=== PATIENT | male | born 1960 | race Caucasian/White ===

== ENCOUNTER 2020-06-21 08:11 | Inpatient (IN) | payer OTHER ==
[~2020-06-21] VITALS: Ht 185.4 cm; Wt 82.7 kg
[2020-06-21] MEDS ORDERED: ASPirin 81 mg TAB PO ONE (10:15)
[2020-06-21 10:59] LABS: Basophils # (auto) 0.1 10 ^3/uL (0-0.2); Eosinophils # (auto) 0.2 10 ^3/uL (0-0.8); Eosinophils % (auto) 1.8 % (0.0-7.0); Hematocrit 41.2 % (41.0-53.0); Hemoglobin 14.1 g/dL (13.5-17.5); Lymphocytes # (auto) 1.9 10 ^3/uL (0.4-5.4); Lymphocytes % (auto) 19.7 % (10.0-50.0); Mean Corpuscular Hemoglobin 34.2 pg (28.0-32.0); Mean Corpuscular Hgb Conc. 34.3 g/dL (32.0-36.0); Monocytes # (auto) 0.7 10 ^3/uL (0-1.3); Monocytes % (auto) 6.9 % (0.0-12.0); Neutrophils # (auto) 6.8 10 ^3/uL (1.6-8.6); Neutrophils % (auto) 70.6 % (37.0-80.0); Platelet Count (auto) 174 10^3/uL (140-450); Red Blood Cells 4.12 10^6/uL (4.5-5.90); Red Cell Distribution Width 13.6 % (11.8-14.3); White Blood Cell 9.7 10^3/uL (4.4-10.8)
[2020-06-21 11:14] LABS: INR 1.06 (0.9-1.15); Partial Thromboplastin Time 29.6 sec (23.0-31.2)
[2020-06-21 11:25] LABS: Albumin 3.9 g/dL (3.4-5.0); Calcium 8.5 mg/dL (8.5-10.1); Potassium 4.1 mmol/L (3.5-5.1)
[2020-06-21 11:30] LABS: BUN/Creatinine Ratio 19.4; Bilirubin, Total 0.6 mg/dL (0.2-1.0); Total Protein 6.8 g/dL (6.4-8.2)
[2020-06-21] MEDS ORDERED: FUROSEMIDE 40 MG/4 ML VIAL IV ONE (12:15)
[2020-06-21] MEDS ORDERED: NITROGLYCERIN 0.4 MG SL TAB SL PRN (14:30)
[2020-06-21] MEDS ORDERED: ONDANSETRON HCL 4 MG/2 ML VIAL IV PRN (14:30)
[2020-06-21] MEDS ORDERED: HYDROcodone-ACET 5/325MG TAB PO PRN (14:30)
[2020-06-21] MEDS ORDERED: MORPHINE SULF INJ 2 MG/ML SYRINGE 1ML IV PRN ×2 (14:30)
[2020-06-21] MEDS ORDERED: ACETAMINOPHEN 500 MG TAB PO PRN (14:30)
[2020-06-21 14:31] LABS: Urine Bacteria NONE SEEN /hpf (None Seen); Urine Blood Negative /uL (Negative); Urine Specific Gravity 1.012 (1.001-1.035); Urine WBC <1 /hpf (0 - 3)
[2020-06-21 18:18] LABS: Magnesium 2.6 mg/dL (1.6-2.6)
[2020-06-21 19:55] VITALS: BP 94/58
[2020-06-21 20:23] VITALS: BP 94/58
[2020-06-21] MEDS: METOPROLOL TARTRATE 25 MG TAB PO SCH (21:57)
[2020-06-21] MEDS ORDERED: ATORVASTATIN 20 MG TAB PO SCH (22:00)
[2020-06-21 22:16] VITALS: BP 97/66
[2020-06-22 05:23] VITALS: BP 91/58
[2020-06-22 07:41] LABS: Basophils # (auto) 0.1 10 ^3/uL (0-0.2); Eosinophils # (auto) 0.3 10 ^3/uL (0-0.8); Hemoglobin 14.5 g/dL (13.5-17.5); Mean Corpuscular Hemoglobin 34.4 pg (28.0-32.0); Monocytes # (auto) 0.7 10 ^3/uL (0-1.3); Monocytes % (auto) 7.7 % (0.0-12.0); Neutrophils # (auto) 5.7 10 ^3/uL (1.6-8.6); Nucleated Red Blood Cells % 0.1 %
[2020-06-22 07:45] LABS: Eosinophils % (auto) 3.6 % (0.0-7.0); Lymphocytes # (auto) 2.1 10 ^3/uL (0.4-5.4); Lymphocytes % (auto) 23.3 % (10.0-50.0); Mean Corpuscular Hgb Conc. 34.5 g/dL (32.0-36.0); Mean Corpuscular Volume 99.5 fL (80.0-100.0); Neutrophils % (auto) 64.4 % (37.0-80.0); Platelet Count (auto) 168 10^3/uL (140-450); Red Blood Cells 4.22 10^6/uL (4.5-5.90); Red Cell Distribution Width 13.4 % (11.8-14.3); White Blood Cell 8.9 10^3/uL (4.4-10.8)
[2020-06-22 07:55] LABS: INR 1.05 (0.9-1.15); Partial Thromboplastin Time 30.3 sec (23.0-31.2)
[2020-06-22 08:14] LABS: BUN/Creatinine Ratio 19.8; Calcium 8.7 mg/dL (8.5-10.1)
[2020-06-22] MEDS ORDERED: LIDOCAINE 2%HCL (LOCAL ANESTH.) INJ 20ML MDV ONE (08:51)
[2020-06-22] MEDS ORDERED: IODIXANOL 320MG/ML 100ML BTL IV ONE (08:51)
[2020-06-22 08:56] VITALS: BP 100/63
[2020-06-22] MEDS ORDERED: VERAPAMIL 2.5MG/ML INJ 2ML VIAL IV ONE (09:08)
[2020-06-22] MEDS ORDERED: HEPARIN SODIUM (PORCINE) 5000 UNITS/ML 1ML VIAL ONE (09:08)
[2020-06-22] MEDS ORDERED: ANGIOMAX 250 MG VIAL IV ONE (09:08)
[2020-06-22] MEDS ORDERED: MIDAZOLAM HCL 1MG/1ML-2 ML VIAL ONE (09:09)
[2020-06-22] MEDS ORDERED: SODIUM CHL 0.9% 0 ML ONE (09:09)
[2020-06-22] MEDS ORDERED: fentaNYL CITRATE 100 MCG/2 ML VL ONE (09:09)
[2020-06-22] MEDS ORDERED: LISINOPRIL 10 MG TAB PO SCH (10:00)
[2020-06-22] MEDS ORDERED: ASPirin-EC 81 mg tab PO SCH (10:00)
[2020-06-22] MEDS ORDERED: FAMOTIDINE 20 MG TAB PO SCH (10:00)
[2020-06-22] MEDS: METOPROLOL TARTRATE 25 MG TAB PO SCH (10:00)
[2020-06-22 12:28] VITALS: BP 85/63
[2020-06-22 13:00] VITALS: BP 99/66
[2020-06-22] MEDS ORDERED: SACUBITRIL-VALSARTAN 24mg/26mg TAB PO SCH (22:00)
[2020-06-22] MEDS ORDERED: CARVEDILOL 3.125 MG TAB PO SCH (22:00)
== END 2020-06-22 14:25 | disposition home or self-care (01) | DRG 280 ==
LOC: ER 08:11 → TELE 08:12 → TELE-WESTW 19:55
PROVIDERS: ADMIT Nurse Practitioner Acute Care; ATTEND Family Medicine
PROC: 4A023N7 Measurement of Cardiac Sampling and Pressure, Left Heart, Percutaneous Approach (ICD-10-PCS; principal; 2020-06-22)
PROC: B2151ZZ Fluoroscopy of Left Heart using Low Osmolar Contrast (ICD-10-PCS; 2020-06-22)
PROC: B2111ZZ Fluoroscopy of Multiple Coronary Arteries using Low Osmolar Contrast (ICD-10-PCS; 2020-06-22)
DX: I21.4 Non-ST elevation (NSTEMI) myocardial infarction (principal); I50.43 Acute on chronic combined systolic (congestive) and diastolic (congestive) heart failure; I11.0 Hypertensive heart disease with heart failure; E11.9 Type 2 diabetes mellitus without complications; E78.5 Hyperlipidemia, unspecified; I35.0 Nonrheumatic aortic (valve) stenosis; F17.210 Nicotine dependence, cigarettes, uncomplicated; Z82.49 Family history of ischemic heart disease and other diseases of the circulatory system; Z88.0 Allergy status to penicillin; Z88.2 Allergy status to sulfonamides; Z88.7 Allergy status to serum and vaccine
CPT/HCPCS: 36415; 71045; 80048; 80053; 80061; 81001; 83615; 83735; 83880; 84484; 85025; 85610; 85730; 86141; 86850; 86900; 86901; 87040; 93306; 96374; 99152; G0378; J2250; Q9967

== ENCOUNTER 2025-02-07 14:02 | Emergency (ER) | payer MEDICARE, MEDICAID ==
[~2025-02-07] VITALS: Ht 182.9 cm; Wt 88.1 kg
--- NOTE | 2025-02-07 14:30 | ED.PDOC ---
HPI (NEURO) HPI Comments 64 y/o M, JAMEY, presents to the ED for CC of generalized weakness. Patient was sitting at the bar when he suddenly felt weak and extremely diaphoretic. He states he was sweating significantly. At some point 911 was called by bystanders in the bar. Upon arrival they found him 38 bradycardic. Hypotensive in the 80s. Patient was given atropine 1 mg IV with improvement in his heart rate into the 60s and blood pressure into the 100s. This time patient is clinically feeling much better. No longer diaphoretic. He states he has known for several years that he is bradycardic but nothing has been done about it. Per EMS no heart block seen on their initial rhythm strip. Patient denies being sick recently. Denies any chest pain. Chief Complaint: General Weakness Time Seen by MD: 14:11 Reviewed Notes: Nurses Notes, Slicing Machine Operator/Tender Notes, Medications, Allergies Information Source: Patient Mode of Arrival: EMS Severity: Moderate Headache Severity: None Timing: Minutes Duration: Since onset Prehospital treatment: None Onset: At rest Circumstances: Spontaneous Symptoms: None Before: Normal During: Awake After: Normal Mentation History of: None Modifying factors: Nothing Associated Signs and Symptoms: Nausea, Weakness Past Medical History PAST MEDICAL HISTORY: Denies Surgical History: Appendectomy Family History Family History: Unknown Social History Smoker: Non-Smoker Alcohol: Denies ETOH Use Drugs: Denies Drug Use Lives In: Home Constitutional: reports: sweats, weakness Gastrointestinal: reports: nausea All Other Systems: Reviewed and Negative ( PER HPI) Physical Exam General Appearance: No Apparent Distress, Normal HEENT: Normal ENT Inspection, Pharynx Normal, TMs Normal Neck: Full Range of Motion, Non-Tender, Normal, Normal Inspection Respiratory: Chest Non-Tender, Lungs Clear, No Accessory Muscle Use, No Respiratory Distress, Normal Breath Sounds Cardiovascular: No Edema, No JVD, No Murmur, No Gallop, Normal Peripheral Pulses, Regular Rate/Rhythm Breast Exam: Deferred Gastrointestinal: No Organomegaly, Non Tender, No Pulsatile Mass, Normal Bowel Sounds, Soft Genitalia: Deferred Pelvic: Deferred Rectal: Deferred Extremities: No calf tenderness, Normal capillary refill, Normal inspection, Normal range of motion, Non-tender, No pedal edema Musculoskeletal : Apperance: Normal Neurologic: Alert, granite countertop installer II-XII nml as Tested, No Motor Deficits, Normal Affect, Normal Mood, No Sensory Deficits Cerebellar Function: Normal Reflexes: Normal Skin: Dry, Normal Color, Warm Lymphatic: No Adenopathy EKG EKG #1: Comments Rate of 64 normal sinus rhythm no significant ST changes. EKG #2: Comments EKG 2. 54 sinus rhythm, with atrial premature complexes. No significant ST changes. Was a procedure done? Was a procedure done?: No Differential Diagnosis (SZ) Seizure: N/A CVA: Other (Bradycardia, heart block, acute arrhythmia, PE, myocardial infarction) General Weakness: Dehydration, Electrolyte imbalance, Hypotension X-Ray, Labs, Meds, VS Vital Signs Date Time Temp Pulse Resp B/P (MAP) Pulse Ox O2 Delivery O2 Flow Rate FiO2 02/07/25 16:57 98.1 52 18 107/61 (76) 100 98.1 02/07/25 16:57 52 18 100 Room Air 02/07/25 15:02 54 02/07/25 14:14 98.8 67 18 95/57 (70) 99 98.8 02/07/25 14:06 67 Lab Test 02/07/25 16:49 02/07/25 16:05 02/07/25 15:09 Range/Units Urine Color Pending Urine Clarity Pending Urine pH Pending Urine Specific Abbott Pending Urine Protein Pending Urine Ketones Pending Urine Blood Pending Urine Nitrite Pending Urine Bilirubin Pending Urine Urobilinogen Pending Urine Leukocyte Esterase Pending Urine RBC Pending Urine Microscopic WBC Pending Urine Squamous Epithelial Cells Pending Urine Bacteria Pending Urine Glucose Pending Troponin I High Sensitivity 10 10 </=54 ng/L White Blood Count 13.2 H 4.4-10.8 10^3/uL Red Blood Count 4.38 L 4.5-5.90 10^6/uL Hemoglobin 15.5 13.5-17.5 g/dL Hematocrit 45.2 41.0-53.0 % Mean Corpuscular Volume 103.0 H 80.0-100.0 fL Mean Corpuscular Hemoglobin 35.3 H 28.0-32.0 pg Mean Corpuscular Hemoglobin Concent 34.2 32.0-36.0 g/dL Red Cell Distribution Width 14.2 11.8-14.3 % Platelet Count 157 140-450 10^3/uL Mean Platelet Volume 9.2 6.9-10.8 fL Neutrophils (%) (Auto) 85.6 H 37.0-80.0 % Lymphocytes (%) (Auto) 9.5 L 10.0-50.0 % Monocytes (%) (Auto) 3.8 0.0-12.0 % Eosinophils (%) (Auto) 0.7 0.0-7.0 % Basophils (%) (Auto) 0.4 0.0-2.0 % Neutrophils # (Auto) 11.3 H 1.6-8.6 10 ^3/uL Lymphocytes # (Auto) 1.3 0.4-5.4 10 ^3/uL Monocytes # (Auto) 0.5 0-1.3 10 ^3/uL Eosinophils # (Auto) 0.1 0-0.8 10 ^3/uL Basophils # (Auto) 0.1 0-0.2 10 ^3/uL Nucleated Red Blood Cells 0.0 % Prothrombin Time 10.9 9.3-11.8 sec Prothrombin Time INR 1.03 0.9-1.15 Activated Partial Thromboplast Time 25.9 24.5-34.5 SEC Sodium Level 139 136-145 mmol/L Potassium Level 5.0 3.5-5.1 mmol/L Chloride Level 108 H 98-107 mmol/L Carbon Dioxide Level 26 20-31 mmol/L Anion Gap 5 5-15 Blood Urea Nitrogen 13 9-23 mg/dL Creatinine 1.38 H 0.700-1.30 mg/dL Glomerular Filtration Rate Calc 57 >90 mL/min BUN/Creatinine Ratio 9.4 L 10.0-20.0 Serum Glucose 111 H 74-106 mg/dL Calcium Level 9.6 8.7-10.4 mg/dL 64-year-old male presents here with symptomatic bradycardia. Patient was found to be bradycardic and 38 in field. No heart block seen on the rhythm strip per them. Patient was given atropine 1 mg IV in field. Upon his arrival to the ER patient's heart rate was in the 60s. Blood pressure has improved into the 100 systolic. At this time patient has been stable while in the ER. We have closely monitor him and he has been on tele monitor. Blood work has been done which is largely unremarkable except for mild acute kidney injury. At this time I have spoken to Dr. Coronado at [facility] was accepted the patient. Case #[id number]. Currently patient is stable for transfer to [facility]. Time of 1ST Reevaluation: 14:41 Reevaluation 1ST: Unchanged Patient Education/Counseling: Diagnosis, Treatment Family Education/Counseling: No Family Present Departure 1 Departure Time of Disposition: 16:11 Impression: Primary Impression: Symptomatic bradycardia Disposition: 02 SHORT TERM HOSPITAL Condition: Serious e-Prescriptions No Active Prescriptions or Reported Meds Critical Care Note Critical Care Time?: No Stability Stability form required: Yes Stable for transfer: To designated facility Heart Score Heart Score: Heart Score Response (Comments) Value History N/A 0 EKG N/A 0 Age N/A 0 Risk Factors N/A 0 Troponin N/A 0 Total 0 I personally scribed for MARIA T SCHUSTER MD ([email or web address]) on 02/07/25 at 14:30. Electronically submitted by Yas Burgos ([email or web address]). I personally scribed for MARIA T SCHUSTER MD ([email or web address]) on 02/07/25 at 14:37. Electronically submitted by Yas Burgos ([email or web address]). I personally scribed for MARIA T SCHUSTER MD ([email or web address]) on 02/07/25 at 14:46. Electronically submitted by Yas Burgos ([email or web address]). MARIA T SCHUSTER MD Feb 07, 2025 14:30
[2025-02-07 15:23] LABS: Basophils # (auto) 0.1 10 ^3/uL (0-0.2); Basophils % (auto) 0.4 % (0.0-2.0); Eosinophils # (auto) 0.1 10 ^3/uL (0-0.8); Eosinophils % (auto) 0.7 % (0.0-7.0); Hematocrit 45.2 % (41.0-53.0); Hemoglobin 15.5 g/dL (13.5-17.5); Lymphocytes # (auto) 1.3 10 ^3/uL (0.4-5.4); Lymphocytes % (auto) 9.5 % (10.0-50.0); Mean Corpuscular Hemoglobin 35.3 pg (28.0-32.0); Mean Corpuscular Hgb Conc. 34.2 g/dL (32.0-36.0); Monocytes # (auto) 0.5 10 ^3/uL (0-1.3); Monocytes % (auto) 3.8 % (0.0-12.0); Neutrophils # (auto) 11.3 10 ^3/uL (1.6-8.6); Neutrophils % (auto) 85.6 % (37.0-80.0); Platelet Count (auto) 157 10^3/uL (140-450); Red Blood Cells 4.38 10^6/uL (4.5-5.90); Red Cell Distribution Width 14.2 % (11.8-14.3); White Blood Cell 13.2 10^3/uL (4.4-10.8)
[2025-02-07 15:41] LABS: INR 1.03 (0.9-1.15); Partial Thromboplastin Time 25.9 SEC (24.5-34.5); Prothrombin Time 10.9 sec (9.3-11.8)
[2025-02-07 15:44] LABS: Sodium 139 mmol/L (136-145)
[2025-02-07 15:45] LABS: Anion Gap 5 (5-15); Calcium 9.6 mg/dL (8.7-10.4); Carbon Dioxide 26 mmol/L (20-31)
[2025-02-07 15:50] LABS: BUN/Creatinine Ratio 9.4 (10.0-20.0); Blood Urea Nitrogen 13 mg/dL (9-23)
[2025-02-07 16:04] LABS: Chloride 108 mmol/L (98-107); Glucose 111 mg/dL (74-106)
--- NOTE | 2025-02-07 16:10 | ECG ---
[facility] Test Date: 2025-02-07 Test Time: 15:02:04 Pat Name: SARAH ESTRADA Department: ED Room: Gender: M Sap Basis Consultant: DR GLOVER: 1960 Requested By: MARIA T SCHUSTER Order Number: [id number] Reading MD: Measurements Intervals [place] Rate: 54 P: 64 [place]: 174 QRS: 49 QRSD: 105 T: 60 QT: 409 QTc: 388 Interpretive Statements Sinus rhythm Atrial premature complexes Please click the below link to view image of tracing.
--- NOTE | 2025-02-07 16:44 | DVH ---
EXAM: XY CHEST TWO VIEWS ROUTINE TECHNIQUE: Two radiographic views of the chest CLINICAL HISTORY: gen weakness COMPARISON: None Findings/Impression: Frontal and lateral chest radiographs demonstrate no acute osseous or superficial soft tissue abnorma lities. The trachea is midline. The cardiac silhouette and mediastinum are within normal limits. No pneumothorax, pleural effusions, or consolidations.
[2025-02-07 17:51] LABS: Urine Bacteria None Seen /hpf (None Seen)
[2025-02-07 18:26] LABS: Urine Blood Negative /uL (Negative); Urine Clarity Clear (Clear); Urine Color Yellow (Yellow); Urine Mucus FEW (None Seen); Urine Protein, UAD TRACE (Negative); Urine Squamous Epithelial Cell None Seen /hpf (<5); Urine Urobilinogen Normal (Negative); Urine WBC 5 /HPF (0-3); Urine pH 6.5 (5.0-9.0)
--- NOTE | 2025-02-07 19:11 | ECG ---
[facility] Test Date: 2025-02-07 Test Time: 14:06:10 Pat Name: SARAH ESTRADA Department: ED Room: Gender: M Multimedia Producer: dr GLOVER: 1960 Requested By: MARIA T SCHUSTER Order Number: [id number] Reading MD: Measurements Intervals [place] Rate: 67 P: 54 [place]: 168 QRS: 35 QRSD: 92 T: 65 QT: 413 QTc: 436 Interpretive Statements Sinus rhythm Baseline wander in lead(s) II,III,aVR,aVL,aVF Please click the below link to view image of tracing.
[2025-02-07 19:33] VITALS: BP 114/74; PULSE 62; RESP 19; TEMP 97.8; O2SAT 97
== END 2025-02-07 19:50 | disposition short-term general hospital (02) ==
LOC: ER 14:02 → EDBD 14:02 → ER 19:50
DX: R00.1 Bradycardia, unspecified (principal); R61 Generalized hyperhidrosis; R53.1 Weakness; R06.02 Shortness of breath; Z90.49 Acquired absence of other specified parts of digestive tract; Z79.899 Other long term (current) drug therapy
CPT/HCPCS: 36415; 71046; 80048; 81001; 84484; 85025; 85610; 85730; 93005